=== PATIENT | female | born 1980 | race Caucasian/White ===

== ENCOUNTER 2019-09-22 23:17 | Emergency (ER) | payer SELFPAY ==
[~2019-09-22] VITALS: Ht 160 cm; Wt 56.7 kg
[2019-09-22 23:17] VITALS: BP 125/69
== END 2019-09-23 | disposition home or self-care (01) ==
LOC: ER 23:19
DX: J02.9 Acute pharyngitis, unspecified (principal); E78.5 Hyperlipidemia, unspecified

== ENCOUNTER 2020-01-18 15:25 | Emergency (ER) | payer SELFPAY ==
[~2020-01-18] VITALS: Ht 160 cm; Wt 60.8 kg
[2020-01-18 15:34] VITALS: BP 129/70
--- NOTE | 2020-01-18 16:01 | NUR ---
Patient discharged to home in stable condition. Written and verbal after care instructions given. Patient verbalizes understanding of instruction.
== END 2020-01-18 16:02 | disposition home or self-care (01) ==
LOC: ER 15:25
DX: R25.3 Fasciculation (principal); R51 Headache; E78.5 Hyperlipidemia, unspecified

== ENCOUNTER 2020-09-25 21:28 | Inpatient (IN) | payer MEDICAID ==
[~2020-09-25] VITALS: Ht 160 cm; Wt 59.4 kg
--- NOTE | 2020-09-25 21:33 | NUR ---
pt bibself c/o palpitations x1week. Pt aaox4 breathing evenly and unlabored. Pt states " i feel my heart beating fast, i can usually calm down, but not this week." Pt attached to monitor and pox. Pt skin warm, dry, and intact. Pt given blanket and call light within reach
--- NOTE | 2020-09-25 22:20 | NUR ---
lab at bedside
[2020-09-25] MEDS ORDERED: LORAZEPAM 1 MG TABLET ONE (22:21)
--- NOTE | 2020-09-25 22:25 | NUR ---
xray at bedside
[2020-09-25 22:30] LABS: BASOPHILS # (AUTO) 0.1 /CMM (0.0-0.2); BASOPHILS % (AUTO) 0.7 % (0.0-2.0); EOSINOPHILS % (AUTO) 1.5 % (0.0-6.0); HEMATOCRIT 40 % (33-45); HEMOGLOBIN 13.6 g/dL (11.5-14.8); LYMPHOCYTES # (AUTO) 1.5 /CMM (0.8-4.8); LYMPHOCYTES % (AUTO) 20.6 % (20.0-44.0); MEAN CORPUSCULAR HGB CONC 34 g/dl (31.0-36.0); MEAN CORPUSCULAR VOLUME 93 fL (82-100); MONOCYTES # (AUTO) 0.6 /CMM (0.1-1.30); MONOCYTES % (AUTO) 8.4 % (2.0-12.0); NEUTROPHILS % (AUTO) 68.8 % (43.0-81.0); PLATELET COUNT (AUTO) 341 /CMM (150-450); RED BLOOD CELL COUNT(AUTO) 4.36 MIL/uL (4.0-5.2); WHITE BLOOD COUNT (AUTO) 7.3 K/uL (4.3-11.0)
[2020-09-25] MEDS ORDERED: LORAZEPAM 1 MG TABLET PO ONE (22:30)
[2020-09-25 22:53] LABS: CALCIUM, SERUM 8.4 mg/dL (8.5-10.1); CREATININE 1.1 mg/dL (0.6-1.3)
[2020-09-25] MEDS ORDERED: ASPIRIN 325 MG TABLET PO ONE (23:00)
[2020-09-25] MEDS ORDERED: ASPIRIN 325 MG TABLET ONE (23:04)
--- NOTE | 2020-09-25 23:20 | NUR ---
urine sent to lab
--- NOTE | 2020-09-25 23:31 | NUR ---
covid swab sent to lab
--- NOTE | 2020-09-25 23:31 | NUR ---
rt ac 20g initiated
[2020-09-25] MEDS ORDERED: ONDANSETRON HCL/PF 4 MG/2 ML VIAL ONE (23:50)
--- NOTE | 2020-09-25 23:50 | NUR ---
md verbal order of 4mg morphine and 4mg zofran. noted and carried out
[2020-09-25] MEDS ORDERED: MORPHINE SULFATE INJ 4 MG/ML DISP.SYRIN ONE (23:51)
[2020-09-26] MEDS ORDERED: ONDANSETRON HCL/PF 4 MG/2 ML VIAL IV ONE
[2020-09-26] MEDS ORDERED: MORPHINE SULFATE INJ 2 MG/ML DISP.SYRIN IV ONE
--- NOTE | 2020-09-26 | NUR ---
DR. MCCLAIN SPEAKING WITH DR. GANDARA
--- NOTE | 2020-09-26 00:58 | NUR ---
BED ASSIGNMENT 315-2
--- NOTE | 2020-09-26 01:09 | NUR ---
gave report to DORI Bell for tal
--- NOTE | 2020-09-26 01:20 | NUR ---
GAS PLANT TECHNICIAN NOTE PT ADMITTED TO [facility], RM 315-2. ORIENTED PATIENT TO ROOM, UNIT, PRIMARY NURSE, CHARGE NURSE, AND FIELD HEALTH OFFICER. PATIENT'S PRIMARY LANGUAGE PALAU[place]. PATIENT ALERT AND ORIENTED X 3. PATIENT COMPLAINS OF MILD CHEST PAIN THAT RADIATES TO HER SHOULDERS AND NECK. REFUSED PAIN MEDICATION. PATIENT'S SKIN INTACT. IV ACCESS INTACT AND PATENT. PATIENT ON 2L OF OXYGEN SUPPLEMENTATION. WILL MONITOR PATIENT CLOSELY. Addendum: 09/26/20 at 0305 by KELSI BAINS RN ADMITTING NOTE
--- NOTE | 2020-09-26 01:24 | NUR ---
, erma [phone]
[2020-09-26 01:30] VITALS: BP 125/75
[2020-09-26] MEDS ORDERED: ACETAMINOPHEN 325 MG TABLET PO PRN (01:30)
[2020-09-26] MEDS ORDERED: ONDANSETRON HCL/PF 4 MG/2 ML VIAL IVP PRN (01:30)
[2020-09-26] MEDS ORDERED: MAG HYDROX/AL HYDROX/SIMETH 30 ML UDC PO PRN (01:30)
[2020-09-26] MEDS ORDERED: ZOLPIDEM TARTRATE 5 MG TABLET PO PRN (01:30)
[2020-09-26] MEDS ORDERED: HYDROCODONE/APAP 5/325MG TABLET PO PRN (01:30)
[2020-09-26] MEDS ORDERED: Z GUARD REMEDY 2 OZ OINT TP PRN (01:30)
[2020-09-26] MEDS ORDERED: MAGNESIUM HYDROXIDE 30 ML UDC PO PRN (01:30)
[2020-09-26] MEDS: ENOXAPARIN SODIUM 40 MG/0.4 ML DISP.SYRIN SQ SCH ×2 (01:59→21:18)
[2020-09-26 04:00] VITALS: BP 104/68
--- NOTE | 2020-09-26 06:40 | NUR ---
COSTUME DESIGN TEACHER CLOSING NOTE PATIENT IN BED RESTING, EASILY AWAKENED. BREATHING EVEN AND UNLABORED. NO SOB DYSPNEA. PATIENT REPORTS NO CHEST PAIN OR DISCOMFORT AT THIS TIME. IV ACCESS STILL INTACT. TELE MONITOR READING SR 88. SAFETY MEASURES MAINTAINED. ALL NEEDS MET AND ATTENDED. WILL ENDORSE TO DAY SHIFT NURSE FOR DINH.
--- NOTE | 2020-09-26 07:58 | NUR ---
COLOR MAKER FORMULATOR OPENING NOTE RECEIVED PATIENT LYING IN BED, RESTING. NO RESPIRATORY DISTRESS NOTED. NO PAIN NOTED. PATIENT'S PRIMARY LANGUAGE ISRAELI - SPEAKS SOME HEBREW. A/O X 3. PATIENT COMPLAINS OF MILD CHEST PAIN THAT RADIATES TO HER SHOULDERS AND NECK. REFUSED PAIN MEDICATION. PATIENT ON 2L OF O2 - TOLERATING WELL. WILL CONTINUE TO MONITOR.
[2020-09-26 08:00] VITALS: BP 117/80
[2020-09-26] MEDS: PANTOPRAZOLE 40 MG TABLET.DR PO SCH (08:35)
[2020-09-26] MEDS: ASPIRIN EC 81 MG TABLET.DR PO SCH (08:35)
[2020-09-26] MEDS: DILTIAZEM HCL CD 240 MG PO SCH (08:44)
[2020-09-26 16:00] VITALS: BP 105/75
--- NOTE | 2020-09-26 18:33 | NUR ---
COIL WINDER CLOSING NOTE PATIENT CURRENTLY LYING IN BED, AWAKE. A/O X4. MINIMAL PAIN FROM HEADACHE. NO CHEST PAIN AT THIS TIME. BREATHING IS EVEN AND UNLABORED. NO SHORTNESS OF BREATH NOTED. IV ACCESS TO RIGHT AC #20 - SALINE LOCKED, INTACT AND PATENT. SAFETY PRECAUTIONS IMPLEMENTED. CALL LIGHT WITHIN REACH. WILL ENDORSE TO SALES CLOSER NURSE FOR DINH.
--- NOTE | 2020-09-26 19:46 | NUR ---
RIPSAW GRADER NOTE - PAIN PATIENT C/O 12/12 HEADACHE. ADMINISTERED NORCO ORDERED. WILL CONTINUE TO ASSESS FOR PAIN
[2020-09-26 20:00] VITALS: BP_SYST 115; BP_SYST 120; BP_DIAS 69; BP_DIAS 75
--- NOTE | 2020-09-26 20:02 | NUR ---
BUSINESS CENTER REPRESENTATIVE OPENING NOTE PATIENT A/OX4; ABLE TO MAKE NEEDS KNOWN. ON ROOM AIR; TOLERATING WELL WITH NO SOB. EXTERNAL CARD GRINDER HELPER READS NSR AT 80'S. RAC #20G S/L REMOVED; PATIENT C/O PAIN AND WILL REINSERT IV. C/O HEADACHE; WILL ADMINISTER PAIN MEDICATIONS ACCORDINGLY. SAFETY MEASURES IN PLACE: BED IN LOWEST LOCKED POSITION, SIDE RAILS UP X2 CALL LIGHT WITHIN EASY REACH. VISITOR AT BEDSIDE. WILL CONTINUE PLAN OF CARE.
[2020-09-27] VITALS: BP 124/68
[2020-09-27 03:39] LABS: BASOPHILS # (AUTO) 0.1 /CMM (0.0-0.2); BASOPHILS % (AUTO) 0.9 % (0.0-2.0); EOSINOPHILS % (AUTO) 3.4 % (0.0-6.0); HEMATOCRIT 41 % (33-45); LYMPHOCYTES # (AUTO) 1.8 /CMM (0.8-4.8); LYMPHOCYTES % (AUTO) 30.8 % (20.0-44.0); MEAN CORPUSCULAR HGB CONC 34 g/dl (31.0-36.0); MEAN CORPUSCULAR VOLUME 93 fL (82-100); MONOCYTES # (AUTO) 0.4 /CMM (0.1-1.30); MONOCYTES % (AUTO) 6.7 % (2.0-12.0); NEUTROPHILS # (AUTO) 3.5 /CMM (1.8-8.9); NEUTROPHILS % (AUTO) 58.2 % (43.0-81.0); PLATELET COUNT (AUTO) 349 /CMM (150-450); RED BLOOD CELL COUNT(AUTO) 4.45 MIL/uL (4.0-5.2)
[2020-09-27 03:48] LABS: CALCIUM, SERUM 9.1 mg/dL (8.5-10.1); CREATININE 0.7 mg/dL (0.6-1.3); MAGNESIUM 2.2 mg/dL (1.8-2.4); PHOSPHORUS 4.4 mg/dL (2.5-4.9); POTASSIUM 3.7 mmol/L (3.5-5.1)
[2020-09-27 04:00] VITALS: BP 119/63
[2020-09-27 04:01] LABS: THYROID STIMULATING HORMONE 1.447 uIU/mL (0.358-3.74)
--- NOTE | 2020-09-27 06:30 | NUR ---
HAND TENNIS BALL COVERER CLOSING NOTE PATIENT A/OX4; ABLE TO MAKE NEEDS KNOWN. ON ROOM AIR; TOLERATING WELL WITH NO SOB. EXTERNAL SURFACE PLATE FINISHER READS NSR AT 60'S. LAC #22G S/L; PATENT AND INTACT. SAFETY MEASURES IN PLACE: BED IN LOWEST LOCKED POSITION, SIDE RAILS UP X2, CALL LIGHT WITHIN EASY REACH. WILL ENDORSE PLAN OF CARE TO ONCOMING MORNING RN.
--- NOTE | 2020-09-27 07:52 | NUR ---
ELEMENTARY SCHOOL LIBRARIAN OPENING NOTE RECEIVED PATIENT LYING IN BED, SLEEPING. NO RESPIRATORY DISTRESS NOTED. NO PAIN NOTED. PATIENT'S PRIMARY LANGUAGE KYRGYZ - SPEAKS SOME UKRAINIAN. A/O X 4. PATIENT ON ROOM AIR - TOLERATING WELL. IV ACCESS TO LEFT AC #22 - SALINE LOCKED. SAFETY PRECAUTIONS IMPLEMENTED. CALL LIGHT WITHIN REACH. WILL CONTINUE TO MONITOR.
[2020-09-27 08:00] VITALS: BP 121/73
[2020-09-27] MEDS: ASPIRIN EC 81 MG TABLET.DR PO SCH (08:40)
[2020-09-27 08:41] VITALS: BP 121/73
[2020-09-27] MEDS: DILTIAZEM HCL CD 240 MG PO SCH (08:41)
[2020-09-27] MEDS: PANTOPRAZOLE 40 MG TABLET.DR PO SCH (08:41)
[2020-09-27] MEDS ORDERED: DILT240C88 PO (10:06)
--- NOTE | 2020-09-27 11:35 | NUR ---
MS TAR HEATER OPERATOR NOTE PATIENT DISCHARGED VIA PRIVATE CAR. PATIENT MEDICALLY STABLE, A/O X4. NO PAIN OR DISTRESS. NO SHORTNESS OF BREATH NOTED. ALL EXITCARE PROVIDED, DISCHARGE INSTRUCTIONS REVIEWED WITH PATIENT. PATIENT VERBALIZED UNDERSTANDING. PATIENT FULLY CLOTHED, ALL BELONGINGS WITH PATIENT. IV REMOVED, WRISTBAND REMOVED. PATIENT ACCOMPANIED BY FATHER.
== END 2020-09-27 11:35 | disposition home or self-care (01) | DRG 190 ==
LOC: ER 21:32 → TELE 09-26 01:09 → MED 09-27 10:43
PROVIDERS: ADMIT Internal Medicine; ATTEND Internal Medicine
DX: I21.4 Non-ST elevation (NSTEMI) myocardial infarction (principal); N17.0 Acute kidney failure with tubular necrosis; E78.5 Hyperlipidemia, unspecified; I73.00 Raynaud's syndrome without gangrene; R00.2 Palpitations; Z20.822 Contact with and (suspected) exposure to COVID-19
CPT/HCPCS: 36415; 71045-TC; 80048-TC; 80061-TC; 83735-TC; 84100-TC; 84443-TC; 84484-TC; 84703-TC; 85025-TC; 85378-TC; 87081-TC; 93307-TC; C9803; G0378; J1650; J2270; J2405

== ENCOUNTER 2020-10-16 23:16 | Emergency (ER) | payer MEDICAID ==
[~2020-10-16] VITALS: Ht 160 cm; Wt 59.4 kg
[~2020-10-16 23:16] MED LIST: DILT240C88 PO
--- NOTE | 2020-10-16 23:30 | NUR ---
PATIENT BIBSELF C/O RLQ PAIN 3MONTHS, WORSE TODAY, AND C/O "OVARIAN" PAIN. DENIES N/V. PATIENT IS ALERT AND ORIENTED X 4, RR IS EVEN AND UNLABORED, PATIENT V/S WNL. WILL CONTINUE TO MONITOR.
[2020-10-16 23:47] LABS: BILIRUBIN,URINE Negative (NEGATIVE); COLOR,URINE YELLOW (YELLOW); LEUKOCYTE ESTERASE ,URINE Negative (NEGATIVE); NITRITE, URINE Negative (NEGATIVE); PROTEIN,URINE Negative (NEGATIVE); UGLUCOSE Negative (NEGATIVE); UROBILINOGEN,URINE 0.2 EU/dL (0.2)
--- NOTE | 2020-10-16 23:56 | NUR ---
PATIENT TAKEN TO CT
[2020-10-16 23:58] LABS: BASOPHILS # (AUTO) 0.1 /CMM (0.0-0.2); BASOPHILS % (AUTO) 0.9 % (0.0-2.0); EOSINOPHILS % (AUTO) 2.6 % (0.0-6.0); HEMATOCRIT 39 % (33-45); HEMOGLOBIN 13.3 g/dL (11.5-14.8); LYMPHOCYTES # (AUTO) 1.7 /CMM (0.8-4.8); LYMPHOCYTES % (AUTO) 30.5 % (20.0-44.0); MEAN CORPUSCULAR HGB CONC 34 g/dl (31.0-36.0); MEAN CORPUSCULAR VOLUME 92 fL (82-100); MONOCYTES # (AUTO) 0.5 /CMM (0.1-1.30); MONOCYTES % (AUTO) 8.5 % (2.0-12.0); NEUTROPHILS # (AUTO) 3.2 /CMM (1.8-8.9); NEUTROPHILS % (AUTO) 57.5 % (43.0-81.0); PLATELET COUNT (AUTO) 314 /CMM (150-450); RED BLOOD CELL COUNT(AUTO) 4.25 MIL/uL (4.0-5.2); WHITE BLOOD COUNT (AUTO) 5.5 K/uL (4.3-11.0)
[2020-10-17 00:05] LABS: CALCIUM, SERUM 8.4 mg/dL (8.5-10.1); CREATININE 0.9 mg/dL (0.6-1.3); POTASSIUM 3.4 mmol/L (3.5-5.1)
[2020-10-17] MEDS ORDERED: DOCU-141 PO (00:28)
[2020-10-17] MEDS ORDERED: POLY17PO4 PO (00:28)
[2020-10-17 00:41] VITALS: BP 129/78
--- NOTE | 2020-10-17 00:52 | NUR ---
Patient discharged to home in stable condition. Rx and Written and verbal after care instructions given. Patient verbalizes understanding of instruction. ambulatory with a steady gait
== END 2020-10-17 00:52 | disposition home or self-care (01) ==
LOC: ER 23:16
DX: K59.00 Constipation, unspecified (principal); E78.5 Hyperlipidemia, unspecified; Z98.890 Other specified postprocedural states; Z79.899 Other long term (current) drug therapy
CPT/HCPCS: 36415; 80048-TC; 83690-TC; 84703-TC; 85025-TC

== ENCOUNTER 2021-01-20 23:09 | Emergency (ER) | payer SELFPAY ==
[~2021-01-20] VITALS: Ht 160 cm; Wt 58.1 kg
[~2021-01-20 23:09] MED LIST changes: +DOCU-141 PO; +POLY17PO4 PO
[2021-01-20 23:15] VITALS: BP 131/68
== END 2021-01-20 23:25 | disposition home or self-care (01) ==
LOC: ER 23:13
DX: S40.861A Insect bite (nonvenomous) of right upper arm, initial encounter (principal); S40.862A Insect bite (nonvenomous) of left upper arm, initial encounter; S80.861A Insect bite (nonvenomous), right lower leg, initial encounter; S80.862A Insect bite (nonvenomous), left lower leg, initial encounter; E78.5 Hyperlipidemia, unspecified; F41.9 Anxiety disorder, unspecified; F32.9 Major depressive disorder, single episode, unspecified; Z98.890 Other specified postprocedural states; Z79.899 Other long term (current) drug therapy; W57.XXXA Bitten or stung by nonvenomous insect and other nonvenomous arthropods, initial encounter; Y93.89 Activity, other specified; Y92.89 Other specified places as the place of occurrence of the external cause; Y99.8 Other external cause status

== ENCOUNTER 2022-01-11 16:47 | Emergency (ER) | payer OTHER ==
[~2022-01-11] VITALS: Ht 160 cm; Wt 58.5 kg
[2022-01-11] MEDS ORDERED: TDAP [DIPH/PERTUSSIS/TET] 0.5 ML VIAL IM ONE ×2 (17:30→18:16)
--- NOTE | 2022-01-11 18:20 | NUR ---
TDAP GIVEN RIGHT DELTOID IM
--- NOTE | 2022-01-11 18:25 | NUR ---
Patient discharged to home in stable condition. Written and verbal after care instructions given. Patient verbalizes understanding of instruction.
[2022-01-11 18:27] VITALS: BP 120/72
== END 2022-01-11 18:28 | disposition home or self-care (01) ==
LOC: ER 16:48
DX: S61.214A Laceration without foreign body of right ring finger without damage to nail, initial encounter (principal); E78.5 Hyperlipidemia, unspecified; F41.9 Anxiety disorder, unspecified; F32.A Depression, unspecified; Z79.899 Other long term (current) drug therapy; X58.XXXA Exposure to other specified factors, initial encounter; Y93.89 Activity, other specified; Y92.89 Other specified places as the place of occurrence of the external cause; Y99.8 Other external cause status
CPT/HCPCS: 73140-TC; 90715

== ENCOUNTER 2023-02-14 20:32 | Emergency (ER) | payer OTHER ==
[~2023-02-14] VITALS: Ht 160 cm; Wt 59.0 kg
[2023-02-14] MEDS ORDERED: diphenhydrAMINE HCL 50 MG/ML VIAL IV ONE (22:00)
[2023-02-14] MEDS ORDERED: KETOROLAC TROMETHAMINE INJ 30 MG/ML VIAL IV ONE (22:00)
[2023-02-14] MEDS ORDERED: diphenhydrAMINE HCL 50 MG/ML VIAL ONE (22:15)
[2023-02-14] MEDS ORDERED: PROCHLORPERAZINE EDISYLATE 10 MG/2 ML VIAL ONE (22:16)
[2023-02-14] MEDS ORDERED: KETOROLAC TROMETHAMINE INJ 30 MG/ML VIAL ONE (22:16)
[2023-02-14 22:28] LABS: BASOPHILS % (AUTO) 0.8 % (0.0-2.0); EOSINOPHILS # (AUTO) 0.1 K/uL (0.0-0.7); EOSINOPHILS % (AUTO) 1.8 % (0.0-6.0); HEMATOCRIT 38 % (33-45); LYMPHOCYTES # (AUTO) 1.8 K/uL (0.8-4.8); LYMPHOCYTES % (AUTO) 30.3 % (20.0-44.0); MEAN CORPUSCULAR HEMOGLOBIN 31 PG (26.0-33.0); MEAN CORPUSCULAR HGB CONC 34 g/dl (31.0-36.0); MEAN CORPUSCULAR VOLUME 91 fL (82-100); MONOCYTES # (AUTO) 0.4 K/uL (0.1-1.30); MONOCYTES % (AUTO) 6.8 % (2.0-12.0); NEUTROPHILS # (AUTO) 3.5 K/uL (1.8-8.9); NEUTROPHILS % (AUTO) 60.3 % (43.0-81.0); PLATELET COUNT (AUTO) 334 K/uL (150-450); RED BLOOD CELL COUNT(AUTO) 4.19 MIL/uL (4.0-5.2); RED CELL DISTRIBUTION WIDTH 13.4 % (11.5-15.0); WHITE BLOOD COUNT (AUTO) 5.8 K/uL (4.3-11.0)
[2023-02-14] MEDS: PROCHLORPERAZINE EDISYLATE 10 MG/2 ML VIAL IVP ONE ×2 (22:37→22:58)
[2023-02-14] MEDS ORDERED: IBUP-1953 PO (23:35)
[2023-02-15 00:37] VITALS: BP 128/85; TEMP 98.1; O2SAT 98
== END 2023-02-15 00:38 | disposition home or self-care (01) ==
LOC: ER 20:32
DX: R51.9 Headache, unspecified (principal); E78.5 Hyperlipidemia, unspecified; F41.9 Anxiety disorder, unspecified; F32.A Depression, unspecified; Z79.899 Other long term (current) drug therapy
CPT/HCPCS: 99285; 96374; 70450; 96375; 93005; 85025; 36415; J0780; J1200; J1885

== ENCOUNTER 2024-06-25 22:11 | Emergency (ER) | payer OTHER ==
[~2024-06-25] VITALS: Ht 160 cm; Wt 59.0 kg
[~2024-06-25 22:11] MED LIST changes: +IBUP-1953 PO
[2024-06-26] MEDS ORDERED: METO-295 PO (00:48)
[2024-06-26] MEDS ORDERED: diphenhydrAMINE HCL 50 MG/ML VIAL ONE (00:55)
[2024-06-26] MEDS ORDERED: KETOROLAC TROMETHAMINE INJ 30 MG/ML VIAL ONE (00:55)
[2024-06-26] MEDS ORDERED: METOCLOPRAMIDE HCL 10 MG TABLET ONE (00:55)
[2024-06-26] MEDS: diphenhydrAMINE HCL 50 MG/ML VIAL IM ONE (01:02)
[2024-06-26] MEDS: KETOROLAC TROMETHAMINE INJ 30 MG/ML VIAL IM ONE (01:02)
[2024-06-26] MEDS: METOCLOPRAMIDE HCL 10 MG TABLET PO ONE (01:02)
[2024-06-26 01:12] VITALS: BP 129/90; TEMP 98; O2SAT 98
== END 2024-06-26 01:13 | disposition home or self-care (01) ==
LOC: ER 22:13
DX: G43.909 Migraine, unspecified, not intractable, without status migrainosus (principal); E78.5 Hyperlipidemia, unspecified; F41.9 Anxiety disorder, unspecified; F32.A Depression, unspecified; Z79.1 Long term (current) use of non-steroidal anti-inflammatories (NSAID); Z79.899 Other long term (current) drug therapy
CPT/HCPCS: 99284; 96372; J1885; J1200; J8597